=== PATIENT | male | born 1960 ===

== ENCOUNTER 2017-08-04 07:42 | Emergency (ER) | payer OTHER ==
[2017-08-04 08:09] VITALS: BP 145/86
--- NOTE | 2017-08-04 08:56 | UC ---
General HPI - HPI Summary HPI Summary: Patient states his work nurse brought him here to avoid termination from his job after he missed a week of work. Patient states he missed last week due to a headache. He reports having headaches on and off for several years. He states that he has had migraines years ago; however, they resolved after he had multiple teeth pulled. The patient does not describe recurrent headaches as migraine. He notes that at least once a year he gets a debilitating headache. He describes it as a combination of ringing in his ears, episodes of sharp pain behind both eyes that causes him to be "blinded"-he describes the blindness is blurry vision along with light and noise sensitivity. he notes that the last bout of headache was behind both eyes ;howeve, is often just left-sided as well. On review of systems he admits to being off balance with headaches but denies any change in his speech and any focal numbness or weakness. Patient goes on to report having some spots of spontaneous bruising on his arms and legs he notes a spot on each upper extremity plus feeling fatigued. Patient goes on to offer that about 6-7 months ago he noticed some blood in his urine. The work nurse took him to the ER. He denies having any blood work but states they did an ultrasound of his testicles. He states that he was diagnosed with "polyps in his testicles". He reports that the blood resolved and upon questioning he never followed up for further evaluation. Again, patient denies any blood in his urine she denies any blood in his stool or black or tarry stools. He admits to prior history of consuming alcohol but quit several years ago. He is however a heavy smoker. - History of Current Complaint Chief Complaint: UCHeadache Stated Complaint: SINUS Time Seen by Provider: 08/04/17 08:22 Hx Obtained From: Patient Pain Intensity: 1 Alleviating: tylenol helps the headaches Associated Signs & Symptoms: Positive: Dizziness, Headache, Weakness. Negative : Anticoagulation Therapy, Fever, Hemoptysis, Vomiting - Allergy/Home Medications Allergies/Adverse Reactions: Allergies Allergy/AdvReac Type Severity Reaction Status Date / Time No Known Allergies Allergy Verified 08/04/17 08:06 Home Medications: Home Medications Acetaminophen [Tylenol 8 Hour] 3 tab PO DAILY 08/04/17 [History Confirmed ] Multivit-Min/FA/Lycopen/Lutein [Centrum Silver Men Tablet] 1 each PO DAILY 08/04 [History Confirmed 08/04/17] PMH/Surg Hx/FS Hx/Imm Hx Neurological History: Migraine - Surgical History Surgical History: None - Family History Known Family History: Positive: Other - [place] mothers side of family, [place]-mom - Social History Occupation: Employed Full-time Alcohol Use: None Alcohol Amount: quit drinking in 2010 Substance Use Type: None Smoking Status (MU): Heavy Every Day Tobacco Smoker Type: Cigarettes Amount Used/How Often: 1 PPD - Immunization History Vaccination Up to Date: Yes Review of Systems Constitutional: Fatigue Skin: Bruising Eyes: Negative ENT: Negative Respiratory: Negative Cardiovascular: Negative Gastrointestinal: Vomiting, Nausea Genitourinary: Negative Motor: Negative Neurovascular: Negative Musculoskeletal: Negative Neurological: Headache, Weakness Psychological: Negative All Other Systems Reviewed And Are Negative: Yes Physical Exam Triage Information Reviewed: Yes Appearance: Well-Appearing Vital Signs: Initial Vital Signs Temp 97.7 F 08/04/17 07:57 Pulse 71 08/04/17 07:57 Resp 16 08/04/17 07:57 BP 145/86 08/04/17 07:57 Pulse Ox 99 08/04/17 07:57 Vital Signs Reviewed: Yes Eyes: Positive: Conjunctiva Clear, Other: - PERRL. EOMI ENT: Positive: Pharynx normal, TMs normal. Negative: Nasal congestion, Nasal drainage Neck: Positive: Supple, Nontender, No Lymphadenopathy Respiratory: Positive: Lungs clear, Normal breath sounds Cardiovascular: Positive: RRR, No Murmur Abdomen Description: Positive: Nontender, No Organomegaly, Soft Bowel Sounds: Positive: Present Musculoskeletal: Positive: ROM Intact Neurological: Positive: Other: - Alert and oriented 3. Cranial nerves II through XII grossly intact. 5 out of 5 strength and 2+ reflexes 4. Normal steady gait. Negative Romberg and negative pronator drift. Psychological: Positive: Age Appropriate Behavior Skin Exam: Normal, Other - Small area of purple bruise RUE and single brownish bruise LUE. Diagnostics - Radiology No standard instances Xray Interpretation: No Acute Changes Radiology Interpretation Completed By: Radiologist - CT brain+ no intracranial mass or bleed(see report). Course/Dx - Course Course Of Treatment: No hx HTN, bp is elevated here thus requires f/u. no concern for hypertensive urgency or emergency. pt is ROBINS and symptom free at time of exam. his neuro exam is reassuring; however, I will do a CT as he has had no imaging for these episodic debilitating robins's. CT is unremarkable. Possible migraines. will check a u/a given hx of hematuria and no f/u. u/a is + for protein, ketones, blood, leukocytes and nitrities. will send for GC, chlamydia and culture with tx based on result since pt is symptom free of uti. f/u pcp required. Spontaneous bruising by hx. 2 small bruises on exam but no gross hematuria or GI bleed based on hx. will need f/u pcp for evaluation. Need for f/u stressed. Pt agrees and allowed me to make the f/u appt. [facility] IS REQUESTING I SEND A COPY OF TODAY'S VISIT. - Differential Dx - Multi-Symptom Provider Diagnoses: Episodic Headaches. Hx hematuria. R/O uti. Hx spotaneous bruising. Elevated BP Discharge - Sign-Out/Discharge Documenting (check all that apply): Discharge/Admit/Transfer - Discharge Plan Condition: Stable Disposition: HOME Patient Education Materials: Acute Headache (ED), Hypertension (ED), Hematuria (ED) Forms: *Work Release Referrals: Meenu Ríos [Primary Care Provider] - Additional Instructions: DIAGNOSIS: EPISODIC HEADACHES. HISTORY OF HEMATUIRA(BLOOD IN URINE). RULE OUT UTI(URINARY TRACT INFECTION). HISTORY OF SPONTANEOUS BRUISING. ELEVATED BLOOD PRESSURE 145/86. YOU MUST FOLLOW UP WITH YOUR PRIMARY CARE MEDICAL PROVIDER. THIS VISIT IS NO SUBSTITUTE! I HAVE MADE YOU A FOLLOW UP APPOINTMENT AT THE [facility] WITH DR PACE FOR 08/26/17 AT 9AM. BRING YOUR PHOTO ID. - Billing Disposition and Condition Condition: STABLE Disposition: Home
--- NOTE | 2017-08-04 09:26 | RAD ---
Indication: Severe headaches. CT of the brain was performed without IV contrast. Ventricular structures are midline. No midline shift is noted. The extra-axial spaces are unremarkable. There is no evidence of intracranial mass or hemorrhage. No other high or low density lesions are identified. Mastoid air cells and paranasal sinuses are unremarkable. IMPRESSION: No evidence of intracranial mass or hemorrhage is noted.
--- NOTE | 2017-08-06 07:12 | UC ---
- Progress Note Progress Note: Urine culture shows Klebsiella. I have sent in Rx for ceftin. Pt has f/u arranged. He should return for any worsening symptoms or new symptoms such as flank pain, fever or chills. Discharge - Sign-Out/Discharge Documenting (check all that apply): Post-Discharge Follow Up - Discharge Plan Condition: Stable Disposition: HOME Patient Education Materials: Acute Headache (ED), Hematuria (ED), Hypertension (ED) Forms: *Work Release Referrals: Meenu Ríos [Primary Care Provider] - Additional Instructions: DIAGNOSIS: EPISODIC HEADACHES. HISTORY OF HEMATUIRA(BLOOD IN URINE). RULE OUT UTI(URINARY TRACT INFECTION). HISTORY OF SPONTANEOUS BRUISING. ELEVATED BLOOD PRESSURE 145/86. YOU MUST FOLLOW UP WITH YOUR PRIMARY CARE MEDICAL PROVIDER. THIS VISIT IS NO SUBSTITUTE! I HAVE MADE YOU A FOLLOW UP APPOINTMENT AT THE [facility] WITH DR PACE FOR 08/26/17 AT 9AM. BRING YOUR PHOTO ID. - Billing Disposition and Condition Condition: STABLE Disposition: Home
[2017-08-06] MEDS ORDERED: ceFUROXime 500 mg TAB(NF) 500 MG TAB PO SCH (09:00)
== END 2017-08-04 10:00 | disposition home or self-care (01) ==
LOC: UCCORT 07:42
DX: R31.9 Hematuria, unspecified (principal); R51 Headache
CPT/HCPCS: 70450; 81003; 87077; 87086; 87186; 87491; 87591; 99201; G0463